=== PATIENT | female | born 1995 | race Caucasian/White ===

== ENCOUNTER 2025-05-31 02:18 | Day surgery (SDC) | payer OTHER, SELFPAY ==
[2025-05-25 13:07] VITALS: BMI 19.5
--- NOTE | 2025-05-25 13:32 | PC.NURSE ---
[facility] has started construction of its new state of the art ER which will open Spring 2026. With this, we anticipate parking may be a challenge for some our surgical patients and families. Parking spaces are limited but are available for all Surgical, obstetrics, and ER patients sharing this lot. If you arrive and find you are having a hard time finding a parking space, please note that we understand the challenges, please drive around the hospital and park near Hospital Entrance 1. When you enter this entrance, you can ask a volunteer to direct or take you back to the surgical waiting area to check in. We appreciate everyone?s understanding of these expected challenges while we build for your future. Report to the Outpatient Waiting Room, entrance under the green pavilion located off [address], at time 1200 on date05/31/2025. Planned Procedure Time: 1400.? Time changes happen often and if your time is changed the preop area will call you the afternoon before. - You and your visitor will be asked to self-screen and do not enter if you have any COVID symptoms. Please call surgeon if you need to reschedule. - A mask is optional within the hospital at this time. Patients may have clear liquids (water, carbonated beverages, clear teas, apple juice) until 3 hours prior to surgery with a maximum of 20 ounces. - No food from midnight until time of surgery and no smoking, or chewing tobacco (or any form of nicotine). No chewing gum, candy or mints. Take only the following medications with a SIP of water on the morning of surgery: Verito, Lexapro, Ubrelvy as needed DO NOT STOP ANY OF YOUR OTHER PRESCRIPTION MEDICATIONS PRIOR TO SURGERY EXCEPT THE FOLLOWING Hold all vitamins and supplements for 3 days per anesthesiologist. Medications to discontinue per physician: Probiotic, Multivitamin Date to take last dose: 05/28/2025 Please no make-up, nail upper sorbian, hairspray, perfume, deodorant, or body powder the day of surgery.? No jewelry (including any body piercings) or valuables the day of surgery, leave them at home.? Please take a shower or bath the night before, or the morning of, surgery with an antibacterial soap.? Wear comfortable, loose fitting clothing.? - Jewelry must be removed prior to entering the operating room.? Rings and piercings that are not removed may be cut off. - The hospital will not accept responsibility for valuables.? - Please leave all valuables, including medications, at home the day of surgery. If you are going home after surgery, a licensed garbage truck driver must drive you home.? - NO public transportation without another adult if you receive anesthesia. - We recommend that an adult stay with you for 24 hours following discharge. - We also recommend that you do not drive, make important decision, drink alcoholic beverages, or take any drugs that were not prescribed by your health care provider for at least 24 hours after your discharge time. Follow any additional instructions given to you from your surgeon. Telephone instructions given to patient and asked if any additional questions and then verbalized understanding. Patient advised to call surgeon office or pre surgery nurse liaison [phone] if any additional questions.
[2025-05-31] VITALS (9 sets, daily range): BP systolic 121–146; BP diastolic 73–87; PULSE 78–114; RESP 10–18; TEMP 36.1–37.1; O2SAT 98–100
--- OUTSIDE RECORDS SUMMARY | 2025-05-31 02:21 | XMS_ITS | Clinical Summary ---
[facility] Organization [facility] Address [address] [place] [address] Care Team Providers Care Contact Centre Supervisor Name Role Phone Margot Ordonez NP Primary Care Provider [phone] Allergies Active Allergy Reactions Criticality Noted Date Comments Adhesive Rash Medium 12/12/2021 Medications cetirizine (ZyrTEC) 10 mg tabletIndication s:Seasonal Allergic Rhinitis Take 1 tablet (10 mg total) by mouth every morning Active mv-min/iron/foli c/calcium/vitK (WOMEN'S MULTIVITAMIN ORAL)Indications :supplement Take 1 tablet by mouth every morning Active albuterol HFA (ProAir HFA) 90 mcg/actuation inhaler Inhale 2 puffs every 4 (four) hours as needed for wheezing or shortness of breath 8.5 g 1 09/19/19 22 Active ubrogepant (Ubrelvy) 50 mg tablet Take 1 tablet (50 mg total) by mouth once as needed for migraine for up to 1 dose May repeat dose once in 2 hours if no relief. Do not exceed 2 doses in 24 hours. 9 tablet 3 08/20/19 25 Active Verito, 28, 3-0.02 mg per tablet TAKE 1 TABLET BY MOUTH EVERY MORNING 84 tablet 3 05/02/20 25 Active drospirenone-eth inyl estradioL (Verito, 28,) 3-0.02 mg per tablet Take 1 tablet by mouth every morning 84 tablet 3 04/05/20 25 025 Discontinued Active Problems Problem Noted Date Diagnosed Date Tubular adenoma of colon 01/09/2024 Overview (01/09/2024): -9mm tubular adenoma on colonoscopy in 2012 -due for repeat Colonoscopy ordered. Migraines 01/09/2024 Overview (01/09/2024): -Ubrelvy 50mg as needed -well controlled -using 2-3 times a month Continue Ubrelvy. Chronic tonsillitis 10/23/2022 AMELIA (generalized anxiety disorder) 08/30/2022 Preventative health care 12/12/2021 Assessment & Plan (12/12/2021 3:59 PM CDT): COVID vaccine:Yes vaccinated. Tetanus every 10 years: will check records. Here last in 2017- not due until 2026 Varicella vaccine or Childhood chickenpox: Yes vaccinated Shingrix non-live vaccine 2 doses over age 50: Not due HPV vaccine <45 yo:Yes vaccinated Cervical Cancer Screening age 21-29 every 3 yrs w PAP only, 30-65 w HPV every 5 yrs (or every 3 yrs without HPV) Sees TRACTOR OPERATOR [employer] Knows how to perform Self Breast Exams: Yes Screening Mammogram Annual beginning age 40-50:Not due Recommended combined supplemental and dietary Calcium 1000 mg daily. Colon Cancer Screening (Colonoscopy or Cologuard) over age 45:Not due Reminder for bi-annual teeth cleaning to prevent dental abscess/infections Reminder for UV light protection, sunscreen/sunblock, skin monitoring for mole changes. ABCDE rule: Watch for Asymmetry, Border, Color, Diameter and Evolving Skin Lesions. Anxiety with depression 12/06/2020 Overview (01/09/2024): -previously with psychiatry, just moved back to [facility] -xanax as needed, has not needed in last 6 months -wellbutrin 300mg daily, lexapro 10mg daily -hydroxyzine as needed -trazodone for anxious sleep, using about once a month -feels well managed Refills sent. Assessment & Plan (05/24/2021 12:16 PM DIVORCE ATTORNEY): Chronic, controlled. Continue current therapy Assessment & Plan (04/16/2021 11:05 AM CDT): Chronic, improved. Sleep issues may be SE of lexapro or related to depression. Given improvement in other aspects with lexapro, will continue this. Will add trazodone nightly PRN. Discussed sleep hygiene as well. Assessment & Plan (02/14/2021 11:14 AM CDT): Chronic, uncontrolled -Screening questionnaires scoring higher than last visit but pt reports feeling improved symptoms. Will increase lexapro from 10 to 20mg daily. Again reviewed SE. She has [facility] resources and plans to contact. Would consider addition of buspar if symptoms continue Assessment & Plan (12/06/2020 9:45 AM CDT): Chronic problem, uncontrolled -Prescribed lexapro 10mg daily -Patient aware that effect may not be seen for up to 4-6 weeks -Discussed side-effects including sexual dysfunction, Drowsiness, Weight gain, Insomnia, worsened anxiety, dizziness, headaches, dry mouth, blurred vision, nausea, tremor, constipation, stomach upset -Discussed behavioral health therapy and patient is interested. Resources provided -Reviewed phone apps such as headspace and calm -Pt requested PRN medication to be used until lexapro takes effect. We discussed atarax and xanax but advised sedating effects and avoiding use prior to work, driving, etc. After discussion, will trial atarax nightly PRN. -For any SI/HI, discussed calling the crisis hotline at 1/[phone] or or call Stem cell Donor, peripheral blood 12/05/2020 Exercise-induced asthma 2019 Overview (01/09/2024): -rare use of albuterol Assessment & Plan (12/06/2020 9:40 AM CDT): Chronic, controlled -Continue albuterol use prior to aerobic exercise Assessment & Plan (2019 3:21 PM CDT): Symptoms are quiescent. Will continue to monitor and consider PFTs if she becomes more symptomatic Family history of bicuspid aortic valve 12/22/19 20 Assessment & Plan (2019 3:21 PM CDT): She needs to be screening for bicuspid aortic valve and aortopathy. Will refer for echocardiogram. Resolved Problems Problem Noted Date Diagnosed Date Resolved Date BMI 22.0-22.9, adult 12/06/2020 022 Assessment & Plan (05/24/2021 11:16 AM DIVORCE ATTORNEY): BMI Follow-up includes: nutrition counseling, exercise counseling and education provided. Assessment & Plan (02/14/2021 10:38 AM CDT): BMI Follow-up includes: nutrition counseling, exercise counseling and education provided. Migraine with aura and witho ut status migrainosus, not intractable 2019 12/12/2021 Overview (12/06/2020): Chronic issue for years. Takes sumatriptan 1-2 times/monthly which resolves migraine. Bilateral throbbing. Associated with phonophobia, photophobia, nausea. Sometimes has aura prior to migraine Assessment & Plan (05/24/2021 12:16 PM DIVORCE ATTORNEY): Chronic, uncontrolled. Migraines have not worsened in frequency but had one migraine that was worse in severity. No red flag signs based on history. -Will trial abortive therapy with Ubrelvy. -I do not think she would benefit with prophylactic therapy at this time. -If the severe migraines continue or if she experiences any new symptoms, she is aware to schedule follow-up appointment in person. Assessment & Plan (12/06/2020 9:41 AM CDT): Chronic, controlled -Continue sumatriptan PRN -Given presence of aura, we discussed avoiding estrogen products. OCPs are being prescribed by OB provider. She will contact OB to discuss this further. We briefly discussed nexplanon vs IUD as options for control. Assessment & Plan (2019 3:19 PM CDT): Headaches are consistent with migraine. We discussed treatment strategies. Her migraines are typically refractory to Tylenol and ibuprofen and only occasionally helped by Excedrin migraine. We discussed abortive medications and she will try Imitrex. We discussed side effects. She knows let us know if she is using more than a few times per month Urticaria 2019 12/06/2020 Assessment & Plan (2019 3:19 PM CDT): She had 4 episodes of h tone and urticaria that lasted a few days last year. She was unable to identify a trigger. She was seen at urgent care 1 of these times. I am unsure of the etiology but happy to review should she develop an episode in the next year. Would also likely refer her to Allergy Encounters Date Type Department Care Team Description 04/05/2025 3:15 PM CDT Office Visit [facility] [address] [place] [address] [address] [place] [address] Nay Ross MD Well woman exam with routine gynecological exam (Primary Dx); Oral contraceptive pill surveillance from Last 3 Months Immunizations Immunization Administration Dates Next Due DTaP 5 Pertussis 01/08/2001, 7,06/29/1996,04/27,03/02/1996 HPV, Unspecified 03/17/2008,11/13/2007, 8 Hep A, Adult 10/31/2016 Hep A, Unspecified 01/24/2011 Hep B, Unspecified 06/29/1996,03/02/1996, 996 HiB 03/29/1997, 7,04/27/1996,03/02 IPV 01/08/2001, 7,04/27/1996,03/02 Influenza, Unspecified 05/09/2021,2019,03/23/2019,03/23 MMR 01/08/2001,03/29/1997 Meningococcal ACWY, Unspecified 11/13/2007 Pfizer SARS-CoV-2 Monovalent Vaccination (12+ Yrs) PURPLE 08/01/2020,07/05/2020 Pfizer Sars-Cov-2 Bivalent V accination (12+ YRS) 04/30/2022 Tdap 04/11/2017,09/14/2007 Varicella 03/17/2008,01/24/1997 Surgical History Surgery Date Site/Laterality Comments THUMB SURGERY 06/23/2011 - 06/22/2012 CENTRAL LINE PLACEMENT > 5 YEARS 02/23/2021 N/A stem cell donation for dad TONSILLECTOMY AND ADENOIDECTOMY Medical History Medical History Date Comments Migraine headache 2-3/month, harry es ubrelvy rescue Asthma exercise induced , night time cough Urticaria 2019 kenalog cream Anxiety sees psychiatris t Stem cell donor to father Family History Medical History Relation Name Comments ADD / ADHD Brother Anxiety disorder Brother Depression Brother Atrial fibrillation Father Sunil Cancer Father Sunil Diverticulitis Father Sunil Hypertension Father Sunil Leukemia Father Sunil bicuspid aortic valve Father Sunil Heart disease Maternal Grandfather Heart disease Maternal Grandmother Anxiety disorder Mother Depression Mother Hypothyroidism Mother Prostate cancer Paternal Grandfather Heart attack Paternal Grandmother Anesthesia problems Neg Hx Breast cancer Neg Hx Colon cancer Neg Hx Relation Name Status Comments Brother Alive Father Sunil Maternal Grandfather Alive Maternal Grandmother Alive Mother Alive Paternal Grandfather Alive Paternal Grandmother Social History Tobacco Use Types Packs/Day Years Used Date Smoking Tobacco: Never Smokeless Tobacco: Never Tobacco Cessation:Counseling Given: Not Answered Alcohol Use Standard Drinks/Week Comments Yes 2 (1 standard drink = 0.6 oz pur e alcohol) once per week AUDIT-C Answer Date Recorded Q1: How often do you have a drink containing alc ohol? 2-3 times a week 01/09/2024 Q2: How many drinks containi ng alcohol do you have on a typical day when you are drinking? 1 or 2 01/09/2024 Frequency of Binge Drinking Not on file 12/21 PHQ-2 Answer Date Recorded PHQ-2 Total Score (If total score is 3 or more points, staff should administer the PHQ-9) 0 01/09/2024 PHQ-9 Answer Date Recorded PHQ-9 Total Score 2 01/09/2024 Personal Safety Answer Date Recorded Have you ever been in or are you currently in a harmful physical or emotional relationship or is someone making you feel afraid or unsafe? Denies 11/12/2022 Comments No Sex and Gender Information Value Date Recorded Sex Assigned at Not on file Legal Sex Female 12:35 AM DIVORCE ATTORNEY Gender Identity Not on file Sexual Orientation Not on file Occupation Industry Job Start Date Job End Date nurse Not on file Not on file Not on file Obstetrics History Para Term AB IAB SAB Ectopic Multiple Livin g Live Births 0 0 0 0 0 0 0 0 0 0 0 Last Filed Vital Signs Vital Sign Reading Time Taken Comments Blood Pressure 120/76 04/05/2025 3:11 PM CDT Pulse 71 01/09/2024 1:03 PM CDT Temperature 36.2 C (97.1 F) 01/09/2024 1:03 PM CDT Respiratory Rate 19 11/12/2022 10:30 AM CDT Oxygen Saturation 99% 01/09/2024 1:03 PM CDT Inhaled Oxygen Concentration - - Weight 60.8 kg (134 lb) 04/05/2025 3:11 PM CDT Height 175.3 cm (5' 9) 01/09/2024 1:03 PM CDT Body Mass Index 19.79 01/09/2024 1:03 PM CDT Plan of Treatment Scheduled Procedures Name Priority Associated Diagnoses Date/Ti me COLONOSCOPY Open Access Tubular adenoma of colon Health Maintenance Due Date Last Done Comments Pneumococcal vaccine <65 (1 of 2 - PCV) 12/21/2014 Zoster Vaccine (1 of 2) 12/21/2014 Cervical Cancer Screening 12/21/2024 2023 Depression Screening 01/08/2025 01/09/2024, 01/09/2024, 09/13/2022, Additional history exists Covid-19 Vaccine ( - 2024-2 6 season) 2025 04/30/2022, 03/23/2021, 08/01/2020, Additional history exists Influenza Vaccine (#1) 2025 , 03/23/2020, 03/23/2019, Additional history exists Regular Well Visit/Exam 18-64 04/05/2026, 01/09/2024, 2023, Additional history exists DTaP/Tdap/Td Vaccine (8 - Td or Tdap) 04/11/2027 04/11/2017, 09/14/2007, 01/08/2001, Additional history exists HPV Vaccines Completed 03/17/2008, 10/22, 09/14/2007 Varicella Vaccines Completed 03/17/2008, 01/24/1997 Hepatitis B Screening Completed 11/08/2022 , 06/29/1996, 03/02/1996, Additional history exists Hepatitis C Screening Completed 11/08/2022 Procedures Procedure Name Priority Date/Time Associated Diagnosis Comments IGP,CTNG,RFX APT HPV ALL PTH Routine 2023 3:43 PM CDT Cervical cancer screening HEPATITIS C ANTIBODY Routine 11/08/2022 7:20 AM CDT Encounter for donation of kidney from Last 3 Months or Most Recently Relevant to Health Maintenance Results * IGP,CtNg,rfx Apt HPV all pth (2023 3:43 PM CDT) Clinical indication Comment [facility] - 01 Comment: NEGATIVE FOR INTRAEPITHELIAL LESION OR MALIGNANCY. CELLULAR CHANGES ASSOCIATED WITH INFLAMMATION ARE PRESENT. THIS SPECIMEN WAS RESCREENED PART OF OUR WORKFORCE DEVELOPMENT VICE PRESIDENT PROGRAM. Specimen adequacy: Comment [facility] - 01 Comment: Satisfactory for evaluation. Endocervical and/or squamous metaplastic cells (endocervical component) are present. Clinician provided ICD10 Comment [facility] - 01 Comment:Z12.4 Performed by Comment [facility] - 01 Comment:Sheri Holloway, Adrian totechnologist (ASCP) QC reviewed by Comment [facility] - 01 Comment:Lilliam Hartman, [facility] Exam Proctor (ASCP) . . [facility] - 01 Note: Comment [facility] - 01 Comment: The Pap smear is a screening test designed to aid in the detection of premalignant and malignant conditions of the uterine cervix. It is not a diagnostic procedure and should not be used as the sole means of detecting cervical cancer. Both false-positive and false-negative reports do occur. Test methodology Comment [facility] - 01 Comment: This liquid based ThinPrep(R) pap test was screened with the use of an image guided system. . Comment [facility] - 01 Comment: The HPV DNA reflex criteria were not met with this specimen result therefore, no HPV testing was performed. Chlamydia, Nuc. Acid Amp Negative Negative [facility] 02 Gonococcus, Nuc. Acid Amp Negative Negative [facility] 02 Thin prep-Endocervical 2023 3:43 PM CDT 2023 Narrative [facility] - 12/26/2023 12:08 PM CDT Performed at: - [facility] [id number] Homemaking Rehabilitation Consultant: Sonia Clay MD, Phone: [phone] Performed at: - [facility] [id number] Homemaking Rehabilitation Consultant: Sonia Clay MD, Phone: [phone] Specimen Comment: Source.............Cervix;Endocervix Specimen Comment: No. of containers..01 ThinPrep Vial Nay Ross MD LAB PATHOLOGY ORDERA PACO Final Result Performing Organization Address City/[facility]/ZIP Co de Phone Number [facility] - 01 [facility] 02 * Hepatitis C antibody (11/08/2022 7:20 AM CDT) Hep C Ab Nonreactive Nonreactive RHETT PETTIT Comment:Antibodies to HCV no t detected. Does NOT exclude the possibility of recent exposure to HCV. Current interpretive data was last revised on 22 Blood 11/08/2022 7:20 AM CDT 11/08/2022 8:01 AM CDT us Renan Vuong MD LAB MICROBIOLOGY - GENERAL ORDChastity JIMENEZ Final Result [facility] Department [place] [address] from Last 3 Months or Most Recently Relevant to Health Maintenance Insurance [employer] Address: [facility] [id number] [place] [address] [facility] Address: [address] [address] [facility] Address: [address] [address] [place] [address] [facility] [employer] [facility] [employer]PP[facility] Address: [address] [address] [place] [address] [facility] [employer] [facility] [employer]/PPO Address: [address] [address] [place] [address] [facility] [employer] [facility] [employer]/PPO Address: [address] [address] [place] [address] [employer] [employer] Address: [address] [place] [address] [employer] COV[employer] HMO/POS Advance Directives For more information, please contact: [phone] * Full Code (Latest Code Status on File) Date Activated Date Inactivated Comments 02/23/2021 8:36 AM 02/23/2021 3:06 PM Care Teams Contact Centre Supervisor Relationship Specialty Start Date End Date Margot Ordonez NP [id number] [facility] GENERAL MED, [place] [address] [place] [address] PCP - General Nurse Practitioner 01/09/24
--- OUTSIDE RECORDS SUMMARY | 2025-05-31 02:21 | XMS_ITS | Clinical Summary ---
Author Organization [facility] [address] [facility] Address [address] [facility] [place] [address] Care Team Providers Care Environmental Protection Specialist Name Role Phone Unavailable Primary Care Provider Unavailabl e Allergies Active Allergy Reactions Criticality Noted Date Comments Adhesive Rash Medium 12/12/2021 Medications escitalopram oxalate (LEXAPRO) 20 mg tablet 02/07/2022 Active ubrogepant (Ubrelvy) 50 mg tablet TAKE 1 TABLET (50 MG TOTAL) BY MOUTH ONCE NEEDED FOR MIGRAINE MAY REPEAT DOSE ONCE IN 2 HOURS IF NO RELIEF. DO NOT EXCEED 2 DOSES IN 24 HOURS. 08/09/2021 Active triamcinolone acetonide (KENALOG) 0.1 % Cream Apply to affected area. 05/14/2021 Active hydrOXYzine HCL (ATARAX) 10 mg tablet Take 10 mg by mouth. 09/18/2021 Active Drospirenone-Et hinyl estradiol 3-0.02 mg tablet TAKE 1 TABLET DAILY 84 Tablet 01/08/2023 Active Active Problems Problem Noted Date Diagnosed Date ADD (attention deficit disorder) 04/11/2017 Immunizations Immunization Administration Dates Next Due (ADACEL/BOOSTRIX)(10 YR UP) TDAP VACCINE, 0.5ML, IM 04/11/2017 Hepatitis A Vaccine 10/31/2016 Family History Medical History Relation Name Comments Hypertension Father Healthy Mother Breast Cancer Neg Hx Colon Cancer Neg Hx Ovarian Cancer Neg Hx Uterine or Endometrial Cancer, Not Including Cervical Neg Hx Relation Name Status Comments Father Alive Mother Alive Social History Tobacco Use Types Packs/Day Years Used Date Smoking Tobacco: Never Smokeless Tobacco: Never Tobacco Cessation:Counseling Given: Not Answered Alcohol Use Standard Drinks/Week Comments Yes 0 (1 standard drink = 0.6 oz pur e alcohol) couple times per month Comments No Sex and Gender Information Value Date Recorded Sex Assigned at Not on file Legal Sex Female 9:04 AM BICYCLE MESSENGER Gender Identity Not on file Sexual Orientation Not on file Last Filed Vital Signs Vital Sign Reading Time Taken Comments Blood Pressure 112/80 08/30/2022 12:15 PM BICYCLE MESSENGER Pulse 103 05/11/2018 9:32 AM BICYCLE MESSENGER Temperature 36.7 C (98.1 F) 05/11/2018 9:32 AM BICYCLE MESSENGER Respiratory Rate 16 05/11/2018 9:32 AM BICYCLE MESSENGER Oxygen Saturation 99% 05/11/2018 9:32 AM BICYCLE MESSENGER Inhaled Oxygen Concentration - - Weight 74.8 kg (165 lb) 08/30/2022 12:15 PM BICYCLE MESSENGER Height 175.3 cm (5' 9) 08/30/2022 12:15 PM BICYCLE MESSENGER Body Mass Index 24.37 08/30/2022 12:15 PM BICYCLE MESSENGER Plan of Treatment Health Maintenance Due Date Last Done Comments INFLUENZA VACCINE (#1) 2025 COVID-19 Vaccine (2024-2 6 season) 2025 08/01/2020, 07/05/2020 CERVICAL CANCER SCREENING 02/28/2025 PAP SMEAR 02/28/2025 02/28/2022 HPV/Cotest (21-29) 02/28/2027 02/28/2022 HPV/Cotest (30-65) 02/28/2027 02/28/2022 DTAP/TDAP/TD VACCINES (8 - T d or Tdap) 04/11/2027 04/11/2017, 09/14/2007, 01/08/2001, Additional history exists HEPATITIS B VACCINES Completed 06/29/1996, 03/02/1996, 01/06/1996 HPV VACCINES Completed 03/17/2008, 10/22, 09/14/2007 CHLAMYDIA SCREENING (ANNUAL) 11-24 YEARS Discontinued 08/30/2022, 08/30/2022, 02/28/2022 Procedures Procedure Name Priority Date/Time Associated Diagnosis Comments GC/CHLAMYDIA, UROGENITAL Routine 08/30/2022 12:30 PM BICYCLE MESSENGER Routine screening for STI (sexually transmitted infection) CERV/VAG CYTO SCREEN PAP W/HPV Routine 02/28/2022 4:58 PM CDT Encounter for gynecological examination without abnormal finding Screen for STD (sexually transmitted disease) from Last 3 Months or Most Recently Relevant to Health Maintenance Results * GC/CHLAMYDIA, UROGENITAL (08/30/2022 12:30 PM BICYCLE MESSENGER) C TRAC RNA NOT DETECTED NOT DETECTED [facility] N.GONORRHOEAE RNA, TMA NOT DETECTED NOT DETECTED [facility] COMMENT INFECTIOUS DISEASE [facility] Comment: The analytical performance characteristics of this assay, when used to test SurePath(TM) specimens have been determined by [facility]. The modifications have not been cleared or approved by the FDA. This assay has been validated pursuant to the CLIA regulations and is used for clinical purposes. For additional information, please refer to https://education.[employer].co/faq/WMS536 (This link is being provided for information/ educational purposes only.) Test Performed at: [facility] [address] [address] [place] [address] Manuel Rasheed MD Genital SPECIMEN FROM VAGINA / Unknown 08/30/2022 12:30 PM BICYCLE MESSENGER 08/30/2022 12:51 PM BICYCLE MESSENGER Sheri Pacheco NP MICROBIOLOGY - GENERAL ORD ERABLES Final Result [facility] [phone] [facility] [address] [place] [address] * CERV/VAG CYTO SCREEN PAP W/HPV (02/28/2022 4:58 PM CDT) CLINICAL INFORMATION [facility] Comment:Information not prov ided LAST MENSTRUAL PERIOD [facility] Comment:Information not prov ided PREV PAP: [facility] [place] Comment:Information not prov ided PREV BX: [facility] Comment:Information not prov ided SOURCE [facility] Comment:[facility]: [facility] Comment: Satisfactory for evaluation. Endocervical/transformation zone component present. Age and/or menstrual status not provided PAP INTERP [facility] Comment:Negative for intraep ithelial lesion or malignancy. COMMENT (PAP TEST) [facility] Comment: This Pap test has been evaluated with computer assisted technology. DIGITAL CAMPAIGN MANAGER: Jenifer La Comment: DDS, CT(ASCP) CT screening location: [place] [address] [place] [address] EXPLANATORY NOTE [facility] Comment: EXPLANATORY NOTE: The Pap is a screening test for cervical cancer. It is not a diagnostic test and is subject to false negative and false positive results. It is most reliable when a satisfactory sample, regularly obtained, is submitted with relevant clinical findings and history, and when the Pap result is evaluated along with historic and current clinical information. HPV E6/E7 Not Detected Not Detected [facility] Comment: Methodology: Mat Making Machine Tender-Mediated Amplification This assay detects E6/E7 viral messenger RNA (mRNA) from 14 high-risk HPV types (16,18,31,33,35,39,45,51,52,56,58,59,66,68). Cervical sources are required for HPV testing. If a vaginal source from a patient who has had a total hysterectomy with removal of cervix was submitted, please contact the testing laboratory for alternative testing options. For additional information, please refer to http://education.[employer].co/faq/ZCM016r8 (This link if provided for information/ educational purposes only.) Test Performed at: [facility] [address] [id number] Gigi Rosas D.O., MPH SL Genital SWAB OF ENDOCERVIX / Unknown 02/28/2022 4:58 PM CDT 03/01/2022 3:41 AM CDT Tsering Merida MD PATHOLOGY/CYTOLOGY ORDERABLES F inal Result [facility] [phone] [facility] [address] [phone] from Last 3 Months or Most Recently Relevant to Health Maintenance Insurance [facility] [id number]
--- OUTSIDE RECORDS SUMMARY | 2025-05-31 02:21 | XMS_ITS | Clinical Summary ---
Author Organization [facility] Address [address] [place] [address] Care Team Providers Care Calibration Specialist Name Role Phone Mary Moscoso MD Primary Care Provider [phone] Source Comments [facility],non-owned Affiliates and Associated Physician Practices is amultiple site organization consisting of ambulatory clinics and hospital sitesin [place], [place], [place] and [place]. This disclosure is being madepursuant to the Care Everywhere program and may not contain all information available regarding this patient. Last updated 18.[facility] Allergies No known active allergies Medications * Be aware that medications may not be up to date on this document. Alwaysverify current medications with the patient. Drospirenone-Ethin yl Estradiol (JASMIEL PO) Active Active Problems No known active problems Immunizations Immunization Administration Dates Next Due HEP A VACCINE, ADULT 10/31/2016 TDAP (7yrs+) 04/11/2017 Family History Medical History Relation Name Comments Hypertension Father Pacemaker Maternal Grandfather Pacemaker Maternal Grandmother None Known Mother Relation Name Status Comments Father Alive Maternal Grandfather Maternal Grandmother Mother Alive Social History Tobacco Use Types Packs/Day Years Used Date Smoking Tobacco: Never Smokeless Tobacco: Never Tobacco Cessation:Counseling Given: Yes Alcohol Use Standard Drinks/Week Comments No 0 (1 standard drink = 0.6 oz pur e alcohol) Comments No Sex and Gender Information Value Date Recorded Sex Assigned at Not on file Legal Sex Female 11:13 AM CDT Gender Identity Not on file Sexual Orientation Not on file Last Filed Vital Signs Vital Sign Reading Time Taken Comments Blood Pressure 116/78 04/25/2020 10:06 AM BPM ANALYST Pulse 97 04/25/2020 10:06 AM BPM ANALYST Temperature 37 C (98.6 F) 04/25/2020 10:06 AM BPM ANALYST Respiratory Rate 18 04/25/2020 10:06 AM BPM ANALYST Oxygen Saturation 100% 04/25/2020 10:06 AM BPM ANALYST Inhaled Oxygen Concentration - - Weight 68 kg (150 lb) 07/03/2019 11:12 AM BPM ANALYST Height 175.3 cm (5' 9) 07/03/2019 11:12 AM BPM ANALYST Body Mass Index 22.15 07/03/2019 11:12 AM BPM ANALYST Plan of Treatment Health Maintenance Due Date Last Done Comments HIV SCREENING 12/21/2010 HEPATITIS C SCREENING 12/17/2013 HEPATITIS B VACCINE (1 of 3 - 19+ 3-dose series) 12/21/2014 HEPATITIS A VACCINE (2 of 2 - Risk 2-dose series) 05/03/2017 10/31/2016 HPV VACCINE (1 - 3-dose SCDM series) 12/21/2022 DEPRESSION SCREENING 06/23/2024 COVID-19 VACCINE (1 - 2024-2 6 season) 2025 INFLUENZA VACCINE (#1) 2025 9, 03/23/2018 DTAP/TDAP/TD VACCINES (2 - T d or Tdap) 04/11/2027 04/11/2017 ZOSTER VACCINE (1 of 2) 12/21/2045 HIB VACCINE Aged Out No longer eligi ble based on patient's age to complete this topic MENINGOCOCCAL (Group B) VACCINE SHARED DECISION-MAKING Aged Out No longer eligible based on patient's age to complete this topic MENINGOCOCCAL GROUPS A/C/Y/W VACCINE Aged Out No longer eligible b ased on patient's age to complete this topic PNEUMOCOCCAL VACCINE Aged Out No long er eligible based on patient's age to complete this topic Insurance [employer] Care Teams Calibration Specialist Relationship Specialty Start Date End Date Mary Moscoso MD PCP - General Internal Medicine 04/25/20
[2025-05-31] MEDS: SCOPOLAMINE 1 MG PATCH 1 PATCH TRANSDERM (12:56)
[2025-05-31] MEDS: TRANEXAMIC ACID 1,000MG/ISO100 1,000 MG/100 ML BAG 200 MG IVPB (12:56)
--- NOTE | 2025-05-31 13:07 | P.PNAN_ITS ---
Anes - Initial Pre Proc Eval Procedure: Operation Date: 05/31/25 14:00 Proposed Procedures p Bilateral Breast Augmentation, Bilateral Axillary Liposuction - Jaime Moore MD Date/Time: 05/31/25 13:07 Surgeon: Jaime Moore MD Pre Op Diagnosis: micromastia Patient Data Age: 29 Gender: F Height: 1.75 m Weight: 60.1 kg Last Vital Signs Temp 37.1 C 05/31/25 12:45 Pulse 78 05/31/25 12:45 Resp 16 05/31/25 12:45 BP 123/74 05/31/25 12:45 Pulse Ox 99 05/31/25 12:45 O2 Del Method Room Air 05/31/25 12:45 Allergies Allergy/AdvReac Type Severity Reaction Status Date / Time adhesive AdvReac Intermediate Rash Verified 05/31/25 12:43 Home Medications ?Medication ?Instructions ?Recorded ?Confirmed ?Type cetirizine 10 mg tablet (All Day 10 mg PO DAILY PRN al lergy symptoms 05/25/25 05/25/25 History Allergy (cetirizine)) drospirenone 3 mg-ethinyl 1 tablet PO DAILY 05/25/25 1 08/01/24 History estradiol 0.02 mg tablet (JUNE (28)) escitalopram oxalate 10 mg tablet 10 mg PO DAILY 05/2505/31/25 History lactobacillus combination no.4 3 3,000 mmu cells PO DA NELLY 05/25/25 05/25/25 History billion cell capsule (Probiotic) multivitamin 1 tablet PO DAILY 05/25/25 1 07/26/24 History trazodone 50 mg tablet 25 mg PO .nightly PRN insomn ia 05/25/25 05/25/25 History ubrogepant 50 mg tablet (Ubrelvy) 50 mg PO .COMPLEX ID N migraine 05/25/25 05/31/25 History headache Patient hx anesthesia problems: none Family hx anesthesia problems: none Results Review: All pre-operative results and documents have been reviewed as part of the pre- operative evaluation. [facility] Past Medical History Medical History (Updated 05/31/25 @ 13:07 by Toño Contreras MD) Depression Social History Social History Smoking status: Never smoker Alcohol intake: current Drinks per week: 2 Alcohol use details: socially Substance use: never Living arrangements: alone Spiritual care concerns: No Anes - Eval Final PreProcedure Day of Procedure 05/31/25 13:07 Patient weight: normal Heart: regular rate and rhythm Lungs: clear to auscultation Airway: Mallampati scale class II Neurological: alert and oriented Last oral intake: >/= 8 hours ASA classification: I Emergent: no Anesthetic plan: proceed Anesthesia type and monitoring: general LMA and standard monitoring Results Review: All pre-operative results and documents have been reviewed as part of the pre- operative evaluation. Informed Consent: The patient's anesthetic plan and its attendant risks and benefits were discussed with the patient/family/POA. Questions were solicited and answers provided to the satisfaction of the patient/family/POA.
--- NOTE | 2025-05-31 13:07 | WPDHPUPDATE1 ---
History and Physical Update Update Date/Time: 05/31/25 13:07 History and Physical has been reviewed, including an updated exam of the patient. There are NO changes in the patient's condition. Risks, benefits, and alternatives have been discussed and questions answered. Patient agrees to proceed with procedure.
--- NOTE | 2025-05-31 13:22 | W.PM.PROC2 ---
Procedure Note - Detailed Date of Procedure 05/31/25 Pre-op Diagnosis micromastia Post-op Diagnosis Same Procedure Performed Bilateral augmentation mammaplasty Surgeon Jaime Moore MD Anesthesia General Findings Bilateral Jasmin Frank Cohesive 415cc Subfascial Right: REF# [id number] SN [id number] Left REF# [id number] SN [id number] Description of Procedure She is here today for bilateral breast augmentation. Previously and again today the risks, benefits, alternatives were discussed in extensive detail. I wanted her to be very realistic about the risks involved as well as expectations. We discussed aftercare and what to monitor for. Made sure answered all of her questions to her satisfaction today and consent was obtained. Marked in the preoperative holding area with their verification. The patient was taken to the operating room placed supine on the operating table. Anesthesia was provided by anesthesiology. A surgical time-out was taken. We cleansed the skin and 1% lidocaine and 0.25% Marcaine with epinephrine was used anesthetize as a field block. She was prepped and draped in a standard sterile fashion. Tegaderm nipple Herr were placed. A 15 blade used to make an incision along the inframammary fold. Dissection was continued at 45 degree angle until the chest wall as identified. I elevated a subfascial pocket in the appropriate dimensions based on our preoperative planning for the implant. I then copiously irrigated with saline solution and verified a strict hemostasis. Next the use a triple antibiotic and Betadine containing solution to irrigate the pocket. I washed my gloves with the triple antibiotic and Betadine solution. We washed the implant immediately upon opening it with this solution and only opened it when we needed it. I used implant funnel and no-touch technique. The implant was introduced into the pocket using the funnel. Having verified positioning of the implant this was closed using 2-0 PDS followed by 3-0 Monocryl in a running subcuticular 4-0 Monocryl followed by tissue glue. Fluffs and surgical bra were placed. Patient was awoke and taken to PACU without difficulty. All instrument sponge counts were correct at the end of the case. Estimated Blood Loss 20 Drains No Packing No Pathology None sent Complications No immediate complications Condition Stable Disposition PACU
[2025-05-31] MEDS: ceFAZolin 2 GM in SODIUM CHLORIDE 0.9% IV 50 ML 100 ML IVPB (13:25)
[2025-05-31] MEDS: LACTATED RINGERS IRRIG 1,000 ML, LIDOCAINE 1% LOCAL INJ 50 ML, EPINEPHrine HCL INJ 1 MG... INFILTRATE (13:25)
[2025-05-31] MEDS: NACL 0.9% IRRIG POUR BOTTLE 900 ML, GENTAMICIN SULFATE INJ 160 MG, ceFAZolin 2 GM, POVI... IRRIGATION (13:25)
[2025-05-31] MEDS: TRANEXAMIC ACID 1,000 MG/10 ML AMPUL 1 MG IV PUSH (13:40)
[2025-05-31] MEDS: LACTATED RINGERS 1,000 ML 30 ML IV CONT ×2 (14:30)
[2025-05-31] MEDS: fentaNYL CITRATE INJ (*CRX) 100 MCG/2 ML VIAL 25 MCG IV PUSH ×5 (14:46→16:33)
[2025-05-31] MEDS: oxyCODONE HCL (*CRX) 5 MG TAB IR PO (15:55)
== END 2025-05-31 17:09 | disposition home or self-care (01) ==
PROVIDERS: PCP Emergency Medicine; Visit Provider Surgery Plastic and Reconstructive Surgery
PROC: (CPT 19325; principal; 2025-05-31 14:00)
DX: Z41.1 Encounter for cosmetic surgery (principal); N64.82 Hypoplasia of breast; F32.A Depression, unspecified; Z98.890 Other specified postprocedural states
CPT/HCPCS: 19325; J0690; A9270; J0166; J1100; J1171; J1580; J2003; J2250; J2371; J2405; J2704; J3010; J3290; J7120